=== PATIENT | male | born 1985 | race Two or more races ===

== ENCOUNTER 2019-02-22 11:20 | Emergency (ER) | payer SELFPAY ==
[~2019-02-22] VITALS: Ht 167.6 cm; Wt 76.0 kg
[2019-02-22 11:21] VITALS: BP 139/75
[2019-02-22] MEDS ORDERED: FLUORESCEIN SODIUM 1MG/STRIP OP ONE (12:45)
[2019-02-22] MEDS ORDERED: TETRACAINE 0.5% OPHTH DROPS 4ML OP ONE (12:45)
[2019-02-22] MEDS ORDERED: ERYTHROMYCIN BASE 0.5% OPHTH OINT 3.5GM LEFTEYE ONE (13:15)
== END 2019-02-22 14:19 | disposition home or self-care (01) ==
LOC: ER 11:20
DX: T15.02XA Foreign body in cornea, left eye, initial encounter (principal); X58.XXXA Exposure to other specified factors, initial encounter; Y93.89 Activity, other specified; Y92.89 Other specified places as the place of occurrence of the external cause; Y99.8 Other external cause status
CPT/HCPCS: 65222; 99284; Z7610